=== PATIENT | female | born 1995 | race Caucasian/White ===

== ENCOUNTER 2018-01-31 06:45 | Observation (INO) ==
[2018-01-31 10:03] LABS: BILIRUBIN,URINE NEGATIVE (NEG); CLARITY,URINE CLEAR (CLEAR); COLOR,URINE YELLOW (Y); GLUCOSE, URINE (UA) 100 mg/dL (NEG); OCCULT BLOOD,URINE NEGATIVE (NEG); PROTEIN,URINE NEGATIVE (NEG); UROBILINOGEN,URINE 0.2 EU/dL (0.2)
[2018-01-31 10:08] LABS: RBC,URINE 0 /hpf; SQUAMOUS EPITHELIAL CELL,UR FEW; URINE SAMPLE TYPE CATH SPECIMEN
[2018-01-31] MEDS ORDERED: metroNIDAZOLE Tab 500 MG TAB PO ONE ×2 (10:55→23:50)
[2018-01-31] MEDS ORDERED: NIFEdipine 10 MG CAPSULE PO ONE (11:20)
[2018-01-31] MEDS ORDERED: Lactated Ringers-OB Dept 1,000 ML PRIMARY IV SCH (14:00)
[2018-01-31] MEDS ORDERED: Sodium Chloride 0.9% 1,000 ML PRIMARY IV ONE (14:18)
[2018-01-31] MEDS ORDERED: TERBUTALINE SULFATE 1 MG/1 ML SDV SUBCUT ONE (15:35)
[2018-01-31] MEDS ORDERED: Sodium Chloride 0.9% 1,000 ML PRIMARY IV SCH (17:30)
[2018-01-31] MEDS: NIFEdipine 10 MG CAPSULE PO SCH ×3 (17:56→22:36)
[2018-01-31] MEDS ORDERED: ACETAMINOPHEN 500 MG TABLET PO ONE (18:20)
[2018-01-31] MEDS ORDERED: CALCIUM CARBONATE 500 MG (TUMS) CHEWABLE TABLET PO PRN (18:59)
[2018-01-31] MEDS ORDERED: Ondansetron ODT Tab 4 MG TAB PO PRN (18:59)
[2018-01-31] MEDS ORDERED: LIDOCAINE W/ SODIUM BICARB 0.5 ML SYR SUBD PRN (18:59)
[2018-01-31] MEDS ORDERED: ONDANSETRON 4 MG/2 ML VIAL IVP PRN (18:59)
[2018-01-31 21:53] VITALS: BP 122/67; RESP 20; TEMP 98.1; O2SAT 100
[2018-02-01] MEDS ORDERED: ACETAMINOPHEN 325 MG TABLET PO PRN (00:30)
[2018-02-01] MEDS ORDERED: Prenatal Multivitamin Tab 1 TAB TAB PO SCH (09:00)
--- NOTE | 2018-02-02 13:15 | OB.PROGRES ---
Intake - - Reason for Visit/Chief Complaint: NST, Other Additional Reason(s) for Visit: type 1 diabetic Admitted From: Home - Estimated Due Date: 03/11/18 Gestational Age in Weeks and Days: 34 Weeks and 5 Days : 2 Para: 1 Births: 1 Living Children: 1 - Labs Blood Type and Rh: O+ Group B Strep: Unknown Hepatitis B Surface Antigen: Absent HIV: Negative Rubella Status: Immune VDRL/RPR: Absent Maternal - Vital Signs Last Taken Vital Signs: Vital Signs - Last Taken Temperature 98.1 F 01/31/18 21:47 Pulse Rate 76 01/31/18 21:47 Respiratory Rate 20 01/31/18 21:47 Blood Pressure 122/67 01/31/18 21:47 Pulse Ox 100 01/31/18 21:47 - Cervical Exam Cervical Dilation (cm): 0 Cervical Effacement Percentage: 0 Station: -4 Exam Performed By: Ricardo - Vaginal Discharge Vaginal Bleeding Amount: None Vaginal Discharge Amount: Moderate Vaginal Discharge Description: Watery Vaginal Discharge Color: White Vaginal Itching: No Monitoring - Uterine Activity Uterine Contraction Monitor Mode: External Contraction Frequency(minutes): 2-4 Contraction Duration (seconds): 30/60 Uterine Contraction Pattern: Irritability Uterine Tone Measurement Phase: Soft Uterine Contraction Intensity: Mild Serrato Score - Serrato Score Cervical Dilation: 0 cm Cervical Effacement: 0-30% Station: -3 Cervical Consistency: Firm Cervical Position: Posterior Serrato Score Total: 0 Results - Bedside Testing Bedside Urine Ketone: Negative Bedside Urine Leukocytes Esterase: Large Bedside Urine Nitrite: Negative Bedside Urine Occult Blood: Negative Bedside Urine Protein: Negative Bedside Specific [place]: 1.010 Assessment and Plan - Assessment / Plan Additional Assessment/Plan Details: Assessment: IUP 34+ weeks who presented for antepartum testing. The patient had large leukoesterase on a urine and therefore a catheter urinalysis was completed. Also a vaginosis panel was completed secondary to vaginal discharge. The patient was diagnosed with bacterial vaginosis and treated with metronidazole 500 mg twice a day for 7 days. Her UA with micro-on the catheter specimen was negative. Urine culture was negative. The patient continued to contract and Dr. Flores evaluated the patient. With hydration and decreased activity, the contractions decreased. The patient was sent home later in the day with strict precautions to return for increased contractions or kick count precautions. Patient expressed understanding. The patient is a type I diabetic and that is the indication for antepartum testing. Secondary to the type I diabetes, betamethasone for lung maturity was discussed with the patient but since the contractions decreased, betamethasone was not administered since the betamethasone would significantly alter the patient's glucoses for a couple days or most likely would alter the glucoses. The patient expressed understanding.
--- NOTE | 2018-02-06 22:35 | OB.PROGRES ---
Date and Time of Service: 01/31/18 Interval History: Per nurse, feeling better. Not feeling any contractions, very few on the monitor. Baby is moving around well. Denies vag bleeding or gushes of fluid. A mild MEJIA, but will take some tylenol. Requesting to go home. Objective - Cervical Exam [place]: irritability, no u/c noted. Heart Rate Interpretation Category: Category I - Vital Signs Last Taken Vital Signs: Vital Signs - Last Taken Temperature 98.1 F 01/31/18 21:47 Pulse Rate 76 01/31/18 21:47 Respiratory Rate 20 01/31/18 21:47 Blood Pressure 122/67 01/31/18 21:47 Pulse Ox 100 01/31/18 21:47 Assessment and Plan - Patient Problems (1) contractions Status: Acute Code(s): O47.9 - False labor, unspecified (2) Bacterial vaginosis Status: Acute Code(s): N76.0 - Acute vaginitis; B96.89 - Other specified bacterial agents as the cause of diseases classified elsewhere - Assessment / Plan Additional Assessment/Plan Details: -negative FFN -procardia is effectively decreasing her contractions down to almost nothing. -GBS was collected. -will take flagyl 500 mg po bid x 1 week for the BV -f/u in 1-[address] Greco.
== END 2018-01-31 23:20 | disposition home or self-care (01) ==
LOC: OBOP 06:45 → OBIP 06:45
PROVIDERS: ADMIT Family Medicine; ATTEND Family Medicine

== ENCOUNTER 2018-02-10 08:20 | Inpatient (IN) ==
--- NOTE | 2018-02-10 10:31 | OB.PROGRES ---
Intake - - Reason for Visit/Chief Complaint: NST Admitted From: Home - Estimated Due Date: 03/11/16 Gestational Age in Weeks and Days: 140 Weeks and 1 Days Para: 1 Births: 1 Living Children: 1 - Labs Blood Type and Rh: O+ Group B Strep: Negative Rubella Status: Immune Maternal - Vital Signs Last Taken Vital Signs: Vital Signs - Last Taken Temperature 97.8 F 02/10/18 08:34 Pulse Rate 85 02/10/18 08:34 Respiratory Rate 18 02/10/18 08:34 Blood Pressure 117/71 02/10/18 08:34 Pulse Ox 97 02/10/18 08:34 - Vaginal Discharge Vaginal Bleeding Amount: None Vaginal Discharge Amount: None Results - Bedside Testing Bedside Urine Ketone: Negative Bedside Urine Leukocytes Esterase: Moderate Bedside Urine Nitrite: Negative Bedside Urine Occult Blood: Trace Bedside Urine Protein: 3+ Bedside Specific [place]: 1.030 Assessment and Plan - Assessment / Plan Additional Assessment/Plan Details: The patient is a 22-year-old at 35-6/7 weeks with type I diabetes using an insulin pump, edema of , area of , and a history of a 36 week delivery after PPROM at 36 weeks and the delivery of a 9 lbs. 10 oz. child at 36 weeks gestation in [place], [place]. The patient presents today for antepartum testing secondary to the type I diabetes. Additionally, the patient was placed on nifedipine 10 mg every 4 hours 2 weeks ago secondary to contractions. The patient was not administered a to betamethasone secondary to the patient's type I diabetes and the patient vannesa but not changing her cervix and the fact that with her last the patient did receive betamethasone and her glucoses were not controlled well for several days and the patient did not want to experience this with this . The patient has done well over the last 2 weeks. The patient states that she has had back pain since last night and she can feel tightening in her abdomen both the right and the left side. No bleeding. No gush of fluid. No specific pain with contractions. The patient was found to be vannesa every 2-3 minutes on the monitor. heart tones in the 160s to 170s with good accelerations. No late decelerations. Please see the note below from my first meeting with the patient in November 2017 when the patient was 24-5/7 weeks. Patient transferred from [place], [place] in the mid to later second trimester. The patient is a 22-year-old at 24-5/7 weeks with an MELLISA of 03/11/2018 who presents today as a transfer OB from [place], [place]. Patient is a type I diabetic using an insulin pump. The patient does not have a continuous glucose monitor yet. The patient states her fasting glucoses are usually less than 95 and her postprandial glucoses are 120 to 130. She should is followed by an alteration workroom supervisor in [place], [place]. Patient had a level II ultrasound in October with maternal- medicine which was essentially normal. Otherwise, patient is doing well. Positive movement, no leak of fluid, no bleeding. Past medical history significant for type I diabetes since age 7. No hypertension. No asthma. Past surgical history x1 at 36 weeks for PPROM. [place] teeth extraction, shoulder surgery status post a course injury Allergies to Ceclor-rash, hydrocodone-rash No tobacco, no alcohol, no drugs. OB history with ??1 with a Pfannenstiel skin incision for PPROM at 36 weeks gestation. Baby was 9 lbs. 10 oz. Baby was in the nursery in [place] for some time secondary to respiratory issues and glucose issues. 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 No STI history, no abnormal Pap smear history. Family history of endocrine disorders. Patient's blood type is documented as O+ from [facility]. I will order a type and screen here for a blood type and antibody screen for documentation here at [facility]. Objective: Patient appears comfortable, blood pressure 117/71 Lungs clear to auscultation Heart regular rate and rhythm Abdomen is gravid, soft, nontender, no guarding or rebound Cervix is closed to fingertip and long and moderate in consistency Extremity with 2+ pitting edema bilaterally and 3/4 reflexes bilaterally. No clonus. FHT's 160-170 with accels and no lates. By Jose Roberto's, baby is in the cephalic presentation. Patient will have DELTA today. Assessment: IUP 35-6/7 weeks with type I diabetes with glucoses supposedly well controlled during this with fasting glucoses less than 95 and 2 are postprandials less than 07[birth year]25/1929 according to the patient who sees an alteration workroom supervisor in [facility] in [place], [place]. The patient's glucose today was 217. 2 other times that the patient has been in the hospital the patient's glucoses were above 200. The patient has not received betamethasone this secondary to the patient stating that she really did not want them if she did not need them since her glucoses when [id number] for several days when she received betamethasone in her first in the third trimester. The patient did not feel well at all. The patient has been on nifedipine 10 mg every 4 hours for the past 2 weeks. Today, the patient is vannesa regularly every 2-3 minutes. The cervix is still closed to a fingertip and thick. Therefore, the patient is not changing her cervix but is vannesa regularly. The patient's EFW has been the 98th percentile. 3343 grams on 02/03/2018 was last growth scan. The patient states that this baby is smaller than her last baby as far she can tell by how she is carrying the baby. The patient's GBS is negative The patient has had 2 different urine cultures are been negative this . Clean-catch urines with any leukocyte esterase. Catheterized urines have been negative for UA micro-and for urine culture. Plan: I had the patient take a dose of nifedipine 10 mg by mouth at around 1040 hrs. Her last dose prior to that was at 0730 hrs. It was due at 1130 hrs. I spoke with the patient about the possibility of betamethasone administration for lung maturity. The E is speaking with the patient now on how her glucoses could perhaps be better monitored and controlled secondary to the betamethasone. The patient just had labs done yesterday with a CBC and CMP. Patient's H&H was 11 and 34. Platelets were normal. White count was normal. Creatinine was 0.6 and AST and ALT were normal but the ALT was 51 with the upper limit of normal 52. Patient's blood pressure is normal. I will admit the patient. The patient and I have talked about keeping the patient here if the contractions do slow down and try to get a steroid window. We have also discussed transferring the patient to a higher level of care secondary to the possibility the patient may be going into labor and the nifedipine not quieting the patient's contractions anymore. There is a possibility that the baby may need to be in the NICU for some time secondary to pulmonary issues or glucose issues. Our small nursery here may not be able to care for the baby long-term and the patient and I discussed the possibility of transferring her if she were to need a versus the possibility of doing a here and then determining how the baby would do. The patient expressed understanding. The CDE did speak with the patient. The patient has had very poor success with a continuous glucose monitor that she got from her CDE and alteration workroom supervisor in [place], [place]. Currently, the patient declines to wear this. The patient does not want betamethasone but will defer to my decision. The CDE and myself discussed that we could give some extra small boluses instead of rearranging the patient's basal rate. The patient could also speak with her alteration workroom supervisor's office in [place] or I could try to contact them. The patient has fairly direct access with them. Again, I will determine if the early dose of nifedipine has helped the patient' s contractions. Since our nursery is currently busy with one baby already on CPAP, and if the patient continues to contract; I will offer the patient to be transferred to [place], [place] to a higher level care secondary to the gestational age the baby but also the fact that the patient is a type I diabetic and the may have a higher chance of requiring NICU pulmonary care and fairly constant glucose care.
[2018-02-10] MEDS ORDERED: LIDOCAINE W/ SODIUM BICARB 0.5 ML SYR SUBD PRN (10:59)
[2018-02-10] MEDS ORDERED: ONDANSETRON 4 MG/2 ML VIAL IVP PRN (10:59)
[2018-02-10 12:02] LABS: Hematocrit [HCT] 33.6 % (37.0-47.0); Hemoglobin [HGB] 11.5 g/dL (12.0-16.0); MEAN CORPUSCULAR HEMOGLOBIN 27.8 PG (27-31); MEAN CORPUSCULAR HGB CONC 34.2 g/dL (33-37); MEAN CORPUSCULAR VOLUME 81.2 FL (81-99); MEAN PLATELET VOLUME 12.4 FL (7.4-12.2); RED BLOOD COUNT 4.14 10^6/uL (4.20-5.40)
[2018-02-10 12:13] LABS: BLOOD UREA NITROGEN 11 mg/dL (7-22); BUN/CREATININE RATIO 18.33 (6-20); SERUM ALBUMIN 3.3 g/dL (3.5-4.8); Uric Acid 5.2 mg/dl (2.5-6.2)
[2018-02-10] MEDS: Lactated Ringers 1,000 ML PRIMARY IV SCH ×2 (12:30→20:10)
--- NOTE | 2018-02-10 12:58 | DI ---
LIMITED OBSTETRICAL ULTRASOUND FOR GROWTH AND DELTA, 02/10/2018 11:48 AM Clinical History: O24.013 Pre-existing type 1 diabetes mellitus, in , t... Previous Exam: 02/03/2018. EDC based on early OB US: 03/11/2018. There is a single live IUP currently in vertex presentation. Amnionic fluid content is normal. Amniot ic fluid index is 19.7 cm. activity is observed as follows: cardiac and extremity. The placenta is anterior corpus and Grade 1. The uterine wall and placenta appear normal. heart rate is 167 beats/minute and regular. Well formed distal femoral epiphyses are noted. BPD, HC, AC, and FL measur ements are 91 mm, 335 mm, 396 mm, and 73 mm, respectively. These measurements correspond to EGA value s of 37 weeks 0 days, 38 weeks 3 days, not available, and 37 weeks 3 days, respectively. Composite EG A is 37 weeks 5 days. The US EDC is 02/26/2018. EDC based on early OB US is 03/11/2018. LMP percentile i s 98%. Estimated weight is 4239 g, plus or minus 619 g. Readin. Single live fetus with vertex presentation and normal amniotic fluid content. Amniotic fluid inde x is 19.7 cm. Placenta is anterior corpus and grade 1. 2. The composite EGA is 37 weeks 5 days. The abdominal circumference measurement exceeds the standar d values for this biophysical parameter. The ultrasound EDC is 02/26/2018. EDC based on the early OB u ltrasound is 03/11/2018. 3. LMP percentile is 98%. Estimated weight is 4239 g, plus or minus 619 g.
--- NOTE | 2018-02-10 13:24 | OB.PROGRES ---
Interval History: The patient is a 22-year-old at 35-6/7 weeks with type I diabetes using an insulin pump, edema of , proteinuria of , and a history of a 36 week delivery - section-after PPROM at 36 weeks and the delivery of a 9 lbs. 10 oz. child at 36 weeks gestation in [place], [place]. The patient presents today for antepartum testing secondary to the type I diabetes. Additionally, the patient was placed on nifedipine 10 mg every 4 hours 2 weeks ago secondary to contractions. The patient was not administered a to betamethasone secondary to the patient's type I diabetes and the patient vannesa but not changing her cervix and the fact that with her last the patient did receive betamethasone and her glucoses were not controlled well for several days and the patient did not want to experience this with this . The patient has done well over the last 2 weeks. The patient states that she has had back pain since last night and she can feel tightening in her abdomen both the right and the left side. No bleeding. No gush of fluid. No specific pain with contractions. The patient was found to be vannesa every 2-3 minutes on the monitor. heart tones in the 160s to 170s with good accelerations. No late decelerations. Please see the note below from my first meeting with the patient in November 2017 when the patient was 24-5/7 weeks. Patient transferred from [place], [place] in the mid to later second trimester. The patient is a 22-year-old at 24-5/7 weeks with an MELLISA of 03/11/2018 who presents today as a transfer OB from [place], [place]. Patient is a type I diabetic using an insulin pump. The patient does not have a continuous glucose monitor yet. The patient states her fasting glucoses are usually less than 95 and her postprandial glucoses are 120 to 130. She should is followed by an brick carrier in [place], [place]. Patient had a level II ultrasound in October with maternal- medicine which was essentially normal. Otherwise, patient is doing well. Positive movement, no leak of fluid, no bleeding. Past medical history significant for type I diabetes since age 7. No hypertension. No asthma. Past surgical history x1 at 36 weeks for PPROM. [place] teeth extraction, shoulder surgery status post a course injury Allergies to Ceclor-rash, hydrocodone-rash No tobacco, no alcohol, no drugs. OB history with x1 with a Pfannenstiel skin incision for PPROM at 36 weeks gestation. Baby was 9 lbs. 10 oz. Baby was in the nursery in [place] for some time secondary to respiratory issues and glucose issues. 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 No STI history, no abnormal Pap smear history. Family history of endocrine disorders. Patient's blood type is documented as O+ from [facility]. I will order a type and screen here for a blood type and antibody screen for documentation here at [facility]. Objective: Patient appears comfortable, blood pressure 117/71 Lungs clear to auscultation Heart regular rate and rhythm Abdomen is gravid, soft, nontender, no guarding or rebound Cervix is closed to fingertip and long and moderate in consistency Extremity with 2+ pitting edema bilaterally and 3/4 reflexes bilaterally. No clonus. FHT's 160-170 with accels and no lates. By Jose Roberto's, baby is in the cephalic presentation. Patient will have DELTA today. Assessment: IUP 35-6/7 weeks with type I diabetes with glucoses supposedly well controlled during this with fasting glucoses less than 95 and 2 are postprandials less than 07/[birth year]29 according to the patient who sees an brick carrier in [facility] in [place], [place]. The patient's glucose today was 217. 2 other times that the patient has been in the hospital the patient's glucoses were above 200. The patient has not received betamethasone this secondary to the patient stating that she really did not want them if she did not need them since her glucoses when [id number] for several days when she received betamethasone in her first in the third trimester. The patient did not feel well at all. The patient has been on nifedipine 10 mg every 4 hours for the past 2 weeks. Today, the patient is vannesa regularly every 2-3 minutes. The cervix is still closed to a fingertip and thick. Therefore, the patient is not changing her cervix but is vannesa regularly. The patient's EFW has been the 98th percentile. 3343 grams on 02/03/2018 was last growth scan. The patient states that this baby is smaller than her last baby as far she can tell by how she is carrying the baby. History of section The patient's GBS is negative The patient has had 2 different urine cultures are been negative this . Clean-catch urines with any leukocyte esterase. Catheterized urines have been negative for UA micro-and for urine culture. Plan: I had the patient take a dose of nifedipine 10 mg by mouth at around 1040 hrs. Her last dose prior to that was at 0730 hrs. It was due at 1130 hrs. I spoke with the patient about the possibility of betamethasone administration for lung maturity. The CDE is speaking with the patient now on how her glucoses could perhaps be better monitored and controlled secondary to the betamethasone. The patient just had labs done yesterday with a CBC and CMP. Patient's H&H was 11 and 34. Platelets were normal. White count was normal. Creatinine was 0.6 and AST and ALT were normal but the ALT was 51 with the upper limit of normal 52. Patient's blood pressure is normal. I will admit the patient. The patient and I have talked about keeping the patient here if the contractions do slow down and try to get a steroid window. We have also discussed transferring the patient to a higher level of care secondary to the possibility the patient may be going into labor and the nifedipine not quieting the patient's contractions anymore. There is a possibility that the baby may need to be in the NICU for some time secondary to pulmonary issues or glucose issues. Our small nursery here may not be able to care for the baby long-term and the patient and I discussed the possibility of transferring her if she were to need a versus the possibility of doing a here and then determining how the baby would do. The patient expressed understanding. The CDE did speak with the patient. The patient has had very poor success with a continuous glucose monitor that she got from her CDE and brick carrier in [place], [place]. Currently, the patient declines to wear this. The patient does not want betamethasone but will defer to my decision. The CDE and myself discussed that we could give some extra small boluses instead of rearranging the patient's basal rate. The patient could also speak with her brick carrier's office in [place] or I could try to contact them. The patient has fairly direct access with them. Again, I will determine if the early dose of nifedipine has helped the patient' s contractions. Since our nursery is currently busy with one baby already on CPAP, and if the patient continues to contract; I will offer the patient to be transferred to [place], [place] to a higher level care secondary to the gestational age the baby but also the fact that the patient is a type I diabetic and the may have a higher chance of requiring NICU pulmonary care and fairly constant glucose care. The above note was copied and pasted because the first line did not say proteinuria and the patient has had 1 . Sometimes Medical Dragon does not transcribe correctly. Currently, the patient can feel contractions but no pain. Some tightening. The patient's glucose was 86 and the patient would like to have something to take in. Objective - Cervical Exam Cervical Exam: Deferred currently [place]: Contractions every 2-3 minutes Heart Rate Interpretation Category: Category I - Labs CBC and BMP: 02/10/18 11:03 02/10/18 11:03 - Vital Signs Last Taken Vital Signs: Vital Signs - Last Taken Temperature 97.8 F 02/10/18 08:34 Pulse Rate 78 02/10/18 10:59 Respiratory Rate 18 02/10/18 10:59 Blood Pressure 130/81 02/10/18 10:59 Pulse Ox 99 02/10/18 10:59 - Additional Details Additional Details: DELTA was 19 and baby in cephalic presentation Assessment and Plan - Assessment / Plan Additional Assessment/Plan Details: Assessment: IUP 35-6/7 weeks with type I diabetes with contractions. Earlier, cervix was not dilated. The patient has been receiving nifedipine 10 mg every 4 hours. I gave the patient a dose about 1 hour early. This did not decrease her contraction frequency. However, the patient could not feel the contractions-pain. She can feel some tightening and pressure. History of section GBS negative I spoke with maternal- medicine in [place], [place]. They suggested that since the patient was not changing her cervix, to continue to observe the patient. With respect to the steroid betamethasone administration, the maternal medicine doctor suggested not administering it secondary to the patient's history of not feeling well for several days after the steroid was administered. If the patient's cervix does not change, they suggested sending the patient home with strict precautions. Plan: I spoke with the patient. The patient will continue to be observed at least until tomorrow because of the frequency of contractions. The patient's cervix will be checked later and if she continues to contract, the patient's cervix will be checked again intermittently. Clear liquid diet currently but will change to a ADA regular diet if the patient is not change in her cervix. I spoke with the patient about not administering the steroids and the patient has not wanted the steroids historically and was pleased that the maternal medicine doctor suggested not to give them secondary to her history. The patient will continue to be observed closely.
[2018-02-10] MEDS ORDERED: NIFEdipine 10 MG CAPSULE PO SCH (14:30)
[2018-02-10] MEDS: NIFEDIPINE 10 MG PO SCH ×2 (18:22→22:49)
--- NOTE | 2018-02-10 18:24 | OB.PROGRES ---
Interval History: Patient states that she is been doing fairly well this afternoon. She currently had a glucose of 56 which she treated with some juice. The patient would like to eat. She can feel slight pressure and slight tightening but no pain with contractions. No leak of fluid. No bleeding. Objective - Cervical Exam Cervical Exam: Cervix is fingertip to closed. Soft cervix. Baby is in cephalic presentation. [place]: Contractions every 2-3 and sometimes every 2-4 minutes. Heart Rate Interpretation Category: Category I - Labs CBC and BMP: 02/10/18 11:03 02/10/18 11:03 - Vital Signs Last Taken Vital Signs: Vital Signs - Last Taken Temperature 97.8 F 02/10/18 08:34 Pulse Rate 78 02/10/18 10:59 Respiratory Rate 18 02/10/18 10:59 Blood Pressure 130/81 02/10/18 10:59 Pulse Ox 99 02/10/18 10:59 Assessment and Plan - Assessment / Plan Additional Assessment/Plan Details: Assessment: IUP 35-6/7 weeks with type I diabetes and history of a section for a large for gestational age baby at 36 weeks-9 lbs. 10 oz.-after P problem. The patient presented for antepartum testing this morning but was found to be vannesa regularly even though the patient had been taking nifedipine 10 mg every 4 hours. The patient continues to not change her cervix. GBS negative Proteinuria -normal blood pressures Edema of Plan: Continue insulin pump for glucoses and continue nifedipine 10 mg every 4 hours. The patient may eat a regular diet for her diabetes. 30 g for breakfast and lunch and 45-60 g for dinner. This is what her CDE and sprue knocker in [place], [place] have set up for her. The patient should continue to check her glucoses regularly. Continue monitoring overnight. For painful contractions, the patient's cervix will be evaluated. For continued nonpainful contractions, the patient's cervix will be checked tomorrow. Continue to evaluate the patient.
[2018-02-10] MEDS ORDERED: ACETAMINOPHEN 500 MG TABLET PO PRN (21:22)
[2018-02-11] MEDS: NIFEDIPINE 10 MG PO SCH ×2 (02:32→06:44)
[2018-02-11] MEDS: Lactated Ringers 1,000 ML PRIMARY IV SCH (04:23)
[2018-02-11 07:22] VITALS: BP 121/77; RESP 17; TEMP 97.6; O2SAT 99
[2018-02-11] MEDS ORDERED: Prenatal Multivitamin Tab 1 TAB TAB PO SCH (09:00)
--- NOTE | 2018-02-11 09:36 | OB.PROGRES ---
Interval History: The patient states that she has been comfortable overnight. No painful contractions or no regular painful contractions. Some cramping and occasional pressure on the right and left hip area. Baby is moving well. No bleeding. No gush of fluid. The patient is tolerating her diet well. The patient is comfortable going home and monitoring contractions there if her cervix is not changed. Objective - Cervical Exam Cervical Exam: FT/thick. Soft cervix [place]: Contractions sometimes every 2-3 minutes and sometimes the contractions to space out to every 2-5 minutes. Heart Rate: 160s Heart Rate Interpretation Category: Category I - Labs CBC and BMP: 02/10/18 11:03 02/10/18 11:03 - Vital Signs Last Taken Vital Signs: Vital Signs - Last Taken Temperature 97.6 F 02/11/18 07:00 Pulse Rate 69 02/11/18 07:00 Respiratory Rate 17 02/11/18 07:00 Blood Pressure 121/77 02/11/18 07:00 Pulse Ox 99 02/11/18 07:00 - Additional Details Additional Details: Lungs clear to auscultation Heart regular rate and rhythm Abdomen soft and nontender and gravid Extremity with 2+ pitting edema bilaterally with negative [place]. Assessment and Plan - Assessment / Plan Additional Assessment/Plan Details: Assessment: IUP 36 weeks with type I diabetes with history of a section for LGA baby with PPROM at 36 weeks gestation or years ago. Proteinuria with normal blood pressures Edema of Patient's glucoses have been in the 120s this morning including fasting. Patient has not been as active. Overall, the patient's glucoses have been much better this most likely since the baby is not as large by the patient's determination but also the EFW by ultrasound on to February 2018 was about 3400 g. The contractions have not cause cervical change yet. Likelihood of uterine rupture is low with no pain and abdominal exam nontender Plan: The patient will be discharged home today. The patient was initially admitted with regular contractions and I was going to administer betamethasone IM and then repeated in 24 hours and the patient was admitted so that we could control the patient's glucoses secondary to the betamethasone administration. The patient initially declined the betamethasone after we discussed that and the patient was admitted but that I spoke with maternal- medicine and the maternal- medicine physician suggested not to administer the betamethasone since the patient felt so poorly 4 years ago when betamethasone was administered secondary to her glucose increases. The patient will continue taking nifedipine 10 mg every 4 hours until 37 weeks gestation The patient will follow-up with me on 02/14/2018 at 10:30 in the morning Antepartum testing prior to seeing me on Wednesday. labor precautions, kick count precautions and preeclampsia precautions have been discussed with the patient.
--- NOTE | 2018-02-11 09:38 | DCSUMMARY ---
Hospitalization Summary Admit Date: 02/10/18 Discharge Date: 02/11/18 Primary Diagnosis:: IUP 35-6/7 weeks with contractions Secondary Diagnosis:: Type I diabetes Proteinuria Edema of Prior section Primary Surgery and Date: No surgery was completed Hospital Course: Assessment: IUP 36 weeks with type I diabetes with history of a section for LGA baby with PPROM at 36 weeks gestation or years ago. Proteinuria with normal blood pressures Edema of Patient's glucoses have been in the 120s this morning including fasting. Patient has not been as active. Overall, the patient's glucoses have been much better this most likely since the baby is not as large by the patient's determination but also the EFW by ultrasound on to February 2018 was about 3400 g. The contractions have not cause cervical change yet. Likelihood of uterine rupture is low with no pain and abdominal exam nontender Plan: The patient will be discharged home today. The patient was initially admitted with regular contractions and I was going to administer betamethasone IM and then repeated in 24 hours and the patient was admitted so that we could control the patient's glucoses secondary to the betamethasone administration. The patient initially declined the betamethasone after we discussed that and the patient was admitted but that I spoke with maternal- medicine and the maternal- medicine physician suggested not to administer the betamethasone since the patient felt so poorly 4 years ago when betamethasone was administered secondary to her glucose increases. The patient will continue taking nifedipine 10 mg every 4 hours until 37 weeks gestation The patient will follow-up with me on 02/14/2018 at 10:30 in the morning Antepartum testing prior to seeing me on Wednesday. labor precautions, kick count precautions and preeclampsia precautions have been discussed with the patient. Exam - Vitals Vital Signs: Vital Signs Temperature 97.6 F Temperature Source Oral Pulse Rate [Pulse Oximeter] 69 Respiratory Rate 17 Blood Pressure [Right Arm] 121/77 Pulse Ox 99 Oxygen Delivery Method Room Air Height 5 ft 3 in Weight 218 lb 6.4 oz
== END 2018-02-11 10:06 | disposition home or self-care (01) | DRG 778 ==
LOC: OBOP 08:20 → OBIP 11:00
PROVIDERS: ADMIT Obstetrics & Gynecology; ATTEND Obstetrics & Gynecology

== ENCOUNTER 2018-02-21 14:07 | Inpatient (IN) ==
[2018-02-21 15:01] LABS: Hematocrit [HCT] 33.8 % (37.0-47.0); Hemoglobin [HGB] 11.4 g/dL (12.0-16.0); MEAN CORPUSCULAR HEMOGLOBIN 27.2 PG (27-31); MEAN CORPUSCULAR HGB CONC 33.7 g/dL (33-37); MEAN CORPUSCULAR VOLUME 80.7 FL (81-99); MEAN PLATELET VOLUME 12.9 FL (7.4-12.2); RED BLOOD COUNT 4.19 10^6/uL (4.20-5.40)
[2018-02-21 15:33] LABS: BLOOD UREA NITROGEN 11 mg/dL (7-22); BUN/CREATININE RATIO 18.33 (6-20); Uric Acid 4.8 mg/dl (2.5-6.2)
[2018-02-21] MEDS ORDERED: Lactated Ringers 500 ML PRIMARY IV ONE (15:35)
[2018-02-21] MEDS: Lactated Ringers 1,000 ML PRIMARY IV SCH ×2 (16:02→20:14)
[2018-02-21 16:59] LABS: HEMOGLOBIN A1C 6.92 % (4.2-6.0)
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
[2018-02-21] MEDS ORDERED: LIDOCAINE W/ SODIUM BICARB 0.5 ML SYR SUBD PRN (17:19)
[2018-02-21] MEDS ORDERED: Lactated Ringers 1,000 ML PRIMARY IV ONE (17:19)
[2018-02-21] MEDS ORDERED: LIDOCAINE HCL 2 % 10 ML JELLY URO-JECT TOPICAL PRN (17:19)
[2018-02-21] MEDS ORDERED: CITRIC ACID/SODIUM CITRATE 30 ML CUP PO ONE (17:19)
[2018-02-21] MEDS ORDERED: Clindamycin 900mg (Premix) 900 MG/50 ML BAG IV ONE (17:19)
[2018-02-21] MEDS ORDERED: Metoclopramide Inj 10 MG/2 ML VIAL IV ONE (17:19)
[2018-02-21] MEDS ORDERED: FAMOTIDINE 20 MG/2 ML VIAL IVP ONE (17:19)
[2018-02-21] MEDS ORDERED: Oxytocin 20 Units + LR 20 UNIT/1,000 ML BAG IV SCH (17:30)
--- NOTE | 2018-02-21 19:41 | CONSULT ---
Consult Note - Consult Consult Date: 02/21/18 Reason for Consult: Other Requesting Physician: Dr. Greco Primary Care Provider: Jhonathan Greco MD - History of Present Illness History of Present Illness: This is a 22 years old female with medical history significant for history of diabetes type I since childhood on insulin pump for more than 10 years who is 2 para 1, she was admitted to the hospital by Dr. Greco as the plan is for her to have tomorrow. The hospitalist service were consulted for management of medical issues. Currently the patient is denying symptoms. She said that she did have low blood sugar earlier and blood was 49 she was given some juice. She feels better now. She said she been having low blood sugar maybe twice a week. She had a lower carbohydrate meal today compared to before. After her low blood sugar in addition to taking the juice she cut back on her basal level to half what she is on. She said she usually able to tell when she has low blood sugar she will have sweating and shakes. Her current basal level is the 47 units for 24 hours. She checks her blood sugar 6 times a day and give herself boluses according to her but sugar and intake. Past Medical History Medical History: 1. Diabetes type I on insulin pump. Her A1c she said before was around 5.6 Surgical History: History of Family History: Reviewed an Not Pertinent Tobacco Use: Never Smoker In the Past 12 Months, Have Used or Abuse Any of the Following Substance: None Alcohol Use: None Review of Systems - Review of Systems All Systems: Reviewed & No Additional Complaints Except as Stated Medication / Allergies Home Medications: Home Medications 3 Medication Instructions Recorded Confirmed Type Claudiaalog See Protocol SUBCUT DAILY 02/07/15 02/09/18 History vitamins no.42-folate 1 mg PO QDAY 11/24/17 02/21/18 History comb.no.6 1 mg chewable tablet ferrous gluconate 324 mg (38 mg 324 mg PO QDAY #30 tab 11/25/17 02/21/18 Rx iron) tablet ranitidine 150 mg tablet 150 mg PO BID PRN #60 tab 02/02/18 02/21/18 Rx clotrimazole 1 % topical cream 1 applic TOPICAL BID #45 g 02/09/18 02/21/18 Rx nifedipine 10 mg capsule 10 mg PO Q4H #10 cap 02/16/18 02/21/18 Rx Allergies/Adverse Reactions: Allergies 3 Allergy/AdvReac Type Severity Reaction Status Date / Time cefaclor [From Ceclor] Allergy Intermediate RASH Verified 02/21/18 14:28 hydrocodone bitartrate Allergy Intermediate RASH Verified 02/21/18 14:28 [From Vicodin] [place] And Derivatives AdvReac RASH Verified 02/21/18 14:28 Exam - Vitals Vital Signs: Vital Signs Temperature 98.1 F Temperature Source Oral Pulse Rate [Pulse Oximeter] 65 Respiratory Rate 18 Blood Pressure [Right Arm] 141/80 Pulse Ox 100 Oxygen Delivery Method Room Air Height 5 ft 3 in Weight 224 lb 3.2 oz - General General Appearance: No Acute Distress, Cooperative - Head Head Exam: Normal Inspection - Eye Eye Exam: POSITIVE: Normal Appearance - ENT ENT Exam: POSITIVE: Normal Exam - Neck Neck Exam: Normal Inspection - Respiratory Respiratory Exam: POSITIVE: Clear to Auscultation - Bilaterally - Cardiovascular Cardiovascular Exam: POSITIVE: RRR - GI/Abdominal Additional GI/Abdominal Exam Details: She is , heart monitor attached. - Rectal Rectal Exam: POSITIVE: Deferred - External Exam: POSITIVE: Deferred - Back Back Exam: POSITIVE: Normal Inspection - Neurological Neurological Exam: POSITIVE: Alert, Oriented x 3, CN II-XII Intact, No Facial Droop, Speech Intact / Clear, Moves All Extremities Equally - Psychiatric Psychiatric Exam: POSITIVE: Normal Affect Results - Labs CBC and BMP: 02/21/18 14:58 02/21/18 14:58 Assessment and Plan - Patient Problems (1) Type I diabetes mellitus Current Visit: Yes Status: Acute Comment: She had low blood sugar initially she did cut back on her pump to half what she takes. We'll check her blood sugar every 2 hours. We'll see what her numbers and then will decide if we need to switch her fluid. Currently Dr. Greco put her on Ringer lactate continue with it. if blood sugar is higher and we may increase the basal infusion. Code(s): E10.9 - Type 1 diabetes mellitus without complications
[2018-02-22] MEDS: Lactated Ringers 1,000 ML PRIMARY IV SCH ×3 (00:36→10:56)
[2018-02-22] MEDS ORDERED: D5-1/2NS 1,000 ML PRIMARY IV SCH (01:30)
--- NOTE | 2018-02-22 06:19 | OB.PROGRES ---
Interval History: The patient states that she is feeling well. No headache. No right upper quadrant pain. The patient slept intermittently. Objective - Cervical Exam Cervical Exam: Deferred Heart Rate Interpretation Category: Category I - Labs CBC and BMP: 02/21/18 14:58 02/21/18 14:58 - Vital Signs Last Taken Vital Signs: Vital Signs - Last Taken Temperature 98.4 F 02/22/18 05:00 Pulse Rate 58 L 02/22/18 05:00 Respiratory Rate 14 02/22/18 05:00 Blood Pressure 138/89 02/22/18 05:00 Pulse Ox 100 02/21/18 14:30 Assessment and Plan - Assessment / Plan Additional Assessment/Plan Details: Assessment: IUP 37-4/7 weeks with type I diabetes with preeclampsia without symptoms or signs of severe preeclampsia. Blood pressures overnight have been in the 140s over 90s and lower. If the patient is on her right side because of the blood pressure cuff position, the patient's blood pressures are lower. The patient does not have a headache or right upper quadrant pain. Contractions have spaced out although the patient really cannot feel the contractions well. They have spaced out on the monitor. Glucoses did drop some with the patient's insulin pump on board and the patient was started on D5 LR when the patient was nothing by mouth. Last glucose was 144 fingerstick. Plan: Repeat section this morning for preeclampsia without symptoms or signs of preeclampsia now that the patient is 37-4/7 weeks and the patient has had nothing by mouth over midnight. Pediatrics is aware of the patient. The hospitalist this following the patient's type I diabetes and will do so postoperatively. Magnesium sulfate not started secondary to the patient's blood pressures thus far. If the patient has blood pressures in the severe range or the labs this morning show abnormalities, magnesium sulfate would be started. CBC and CMP this morning now.
--- NOTE | 2018-02-22 06:30 | OB.OP.NOTE ---
Operative Report Surgeon: Angus Sales Route Driver Helper: Satish Trinidad MD Anesthesia Type: Regional Anesthesia Provider: Kim Lieberman CRNA Surgery Date: 02/22/18 Preoperative Diagnosis: IUP 37-4/7 weeks. Type I diabetes with estimated weight 98 percentile. Previous section. Patient desires repeat section. Preeclampsia without signs or symptoms of severe preeclampsia. contractions. Hydramnios-mild. Group B strep negative. The patient was satisfied parity. Patient desires bilateral tubal ligation. Postoperative Diagnosis: Same Procedure: Repeat low transverse section. Bilateral tubal ligation using Falope-Rings Estimated Blood Loss (mL): 800 Fluids: 1500 mL of LR. Clindamycin 900 mg IV preoperatively. Azithromycin 500 mg IV at cord clamp Complications: None apparent Findings at Surgery: Female infant with weight 10 lbs. 4 oz. Apgars were 8 and 9 ABG showed a pH of 7.267, PCO2 of 47.6, CO2 3 of 21.7, base excess -5 Normal ovaries Normal fallopian tubes Torsion of epiploica excised and sent to pathology found incidentally by general surgeon-Dr. Trinidad Indications for the Procedure: The patient is a 22-year-old at 37-4/7 weeks with type I diabetes using an insulin pump who has a history of a primary section at 36 weeks after PPROM and delivering a 9 lbs. 10 oz. boy. This was in 2013. The patient' s glucoses have been better controlled this with the highest hemoglobin A1c of 7.2 around 6-8 weeks ago. Hemoglobin A1c yesterday was 6.92. The patient has developed preeclampsia without signs or symptoms of severe preeclampsia and has a history of contractions and was prescribed nifedipine 10 mg every 4 hours for the past several weeks. The patient also has mild hydramnios with her last DELTA of 24. With the patient now nothing by mouth after midnight, the patient will have a repeat section and also a tubal ligation secondary to satisfied parity. Description of Procedure: The patient was taken to the operating room after the risks, benefits, alternatives and indications of a repeat section were discussed with the patient in detail. The patient also had satisfied parity and the risk of a tubal ligation were discussed with the patient. Consent forms have been signed previously. The risk, but not limited to, of infection, bleeding, pain postoperatively or intraoperatively, bleeding, hemorrhage requiring blood transfusion with associated risks, hysterectomy secondary to hemorrhage or infection postoperatively, damage to bowel, bladder, nerve, vessel, ureter, nicking the baby, serious infection requiring antibiotics postoperatively and possible transfer to a tertiary care hospital, the need to transfer the baby to a tertiary care hospital for intensive care unit care secondary to lung immaturity or extremely labile glucoses or temperature instability were discussed with the patient. This would also means separation of the patient from her since the patient would be here at [facility] post a and the baby would be in [place], [place] for NICU care. Additionally, blood clots to the legs or lungs and the low risk of was discussed with the patient. The patient expressed understanding with the above. Failure rate of tubal ligation up to 1- 2% over 10 years. Consent forms have been signed previously. The patient underwent spinal anesthesia with low-dose Duramorph in the usual fashion. heart tones were checked and they were normal. The patient was prepped. Santamaria catheter was placed. The patient was then draped sterilely. The patient was tested and anesthesia was found to be adequate. A Pfannenstiel skin incision over the old scar site was made. The subcutaneous tissue was bovied to the fascia. The fascia was nicked in the midline and extended laterally bilaterally using the Yankauer retractor to elevate the fascia off of the rectus muscles. A few vessels were bovied in the subcutaneous tissue. [place] clamps were then placed on either side of the midline on the fascia superiorly and the rectus muscles were dissected off of the fascia using the Bovie and bluntly. The same was done for the fascia inferiorly. The rectus muscles were gently using a Raven clamp. The peritoneum was then entered. The peritoneum was then stretched. I then placed my hand intra-abdominally to check for adhesions between the uterus and the anterior abdominal wall. The Oliver retractor was then placed. The lower uterine segment of the uterus was then evaluated. A low transverse uterine incision was then made. Amniotomy was performed and there was copious amounts of clear amniotic fluid. The lower uterine segment was then stretched. I then placed my hand intrauterine along the baby's head and then deliver the head atraumatically. Baby was in the OP presentation. The mouth and nose were bulb suctioned. The 's posterior shoulder was then delivered slowly and then the anterior shoulder and then the infant. Delayed cord clamping was allowed for for greater than 30 seconds. The baby had a lusty cry The cord was then clamped and cut and the baby was handed off to the waiting nurses and bacteriologist food. A section of cord was then clamped and cut for cord gases and then cord blood was obtained. The placenta was then delivered with manual retraction. Membranes were teased and removed. The uterus was then exteriorized. The uterine incision was then examined. The uterus incision was then closed with 0 Vicryl in a running locking fashion. A [id number] suture 2 was used just to the left of the midline secondary to some bleeding. Then there was good hemostasis. There appeared to be good hemostasis of the uterine incision. The fallopian tubes and ovaries were then examined. The patient desired permanent sterilization secondary to satisfied parity. Falope-Rings were placed on the patient's fallopian tubes about 3 cm from the cornua in an avascular space bilaterally. Good hemostasis. Attention was then turned to the patient's uterine incision again and there was good hemostasis. Irrigation posterior to the uterus and then was suctioned. The uterus was then placed back into the abdomen. The patient's right paracolic gutter was then irrigated and suctioned. Good hemostasis noted. The patient's left paracolic gutter was then irrigated and suctioned. Good hemostasis. The uterine incision was then examined again and irrigated. There appeared to be good hemostasis. The peritoneum was then identified and closed from cephalad to caudal with 3-0 Vicryl suture in a running fashion. There was some fluid that was visualized just before closing the peritoneum. The bladder was backfilled with methylene blue and saline. There did not appear to be any spill from the bladder. The bladder appeared intact. The peritoneum was then closed. The patient's fascia was then examined. Subfascially there was good hemostasis. The fascia was then closed with looped 0 PDS suture starting on the patient's left side and going towards the right side. The looped 0 PDS suture was then tied on the patient's right side at the fascial angle on the patient's right side. The fascia appeared to be intact. The subcutaneous tissue was then examined and there were a few bleeders that were bovied. The subcutaneous tissue was then irrigated and then suctioned. The subcutaneous tissue was then closed with 3-0 Vicryl suture in a running fashion. The skin was then examined and a few areas were bovied. The incision was cleaned with a moist lap sponge. The skin was then closed with 3-0 Stratafix suture in a subcuticular fashion starting in the midline and working towards the left side and right side. The incision appeared to be well approximated. Skin prep and then half-inch Steri-Strips were placed over the incision. Sponge, instrument, and needle counts were correct 2 The radiofrequency wand was also used to ensure that the count was correct. Silverlon dressing was placed over the Steri-Stripped incision site and then an ABD pad and then paper tape. A vaginal exam was then completed and the uterus was expressed of any clot or debris. There was some dark blood. Minimal clot. The agents perineum was cleared of all blood. Santamaria catheter was secured. The patient was then brought to the PACU in stable condition. Plan: The patient would recover in the PACU. The patient would then be transferred to a room. The is currently in the nursery with an IV of D10 secondary to glucose stabilization. Also on CPAP.
[2018-02-22] MEDS ORDERED: Sodium Chloride 0.9% vial 10 ML ONE (06:56)
[2018-02-22] MEDS ORDERED: OXYTOCIN 10 UNIT/1 ML ONE (06:56)
[2018-02-22] MEDS ORDERED: MORPHINE SULFATE/PF 10 MG/10 ML AMPULE ONE (06:56)
[2018-02-22] MEDS ORDERED: ePHEDrine Inj 50 MG/ML AMP ONE (06:56)
[2018-02-22] MEDS ORDERED: LIDOCAINE W/ SODIUM BICARB 0.5 ML SYR ONE (06:56)
[2018-02-22] MEDS ORDERED: CITRIC ACID/SODIUM CITRATE 30 ML CUP PO ONE (07:02)
[2018-02-22 07:33] LABS: BASOPHILS # (AUTO) 0.04 10*3/UL; BASOPHILS % (AUTO) 0.5 % (0-1); EOSINOPHILS % (AUTO) 1.3 % (0-8); Hematocrit [HCT] 32.1 % (37.0-47.0); Hemoglobin [HGB] 10.8 g/dL (12.0-16.0); LYMPHOCYTES # (AUTO) 2.53 10*3/uL; MEAN CORPUSCULAR HEMOGLOBIN 27.1 PG (27-31); MEAN CORPUSCULAR HGB CONC 33.6 g/dL (33-37); MEAN CORPUSCULAR VOLUME 80.7 FL (81-99); MEAN PLATELET VOLUME 12.3 FL (7.4-12.2); MONOCYTES # (AUTO) 0.53 10*3/UL (0.3-0.8); MONOCYTES % (AUTO) 6.8 % (5-15); NEUTROPHILS % (AUTO) 57.9 % (50-80); RED BLOOD COUNT 3.98 10^6/uL (4.20-5.40)
[2018-02-22] MEDS ORDERED: FAMOTIDINE 20 MG/2 ML VIAL IVP ONE (07:38)
[2018-02-22] MEDS ORDERED: Clindamycin 900mg (Premix) 900 MG/50 ML BAG IV ONE (07:38)
[2018-02-22] MEDS ORDERED: Metoclopramide Inj 10 MG/2 ML VIAL ONE (07:38)
[2018-02-22 07:41] LABS: PLATELET MORPHOLOGY COMMENT NORMAL MORPHOLOGY (NORM); RBC MORPHOLOGY COMMENT NORMAL MORPHOLOGY (NORM); WBC MORPHOLOGY COMMENT NORMAL MORPHOLOGY (NORM)
[2018-02-22 07:57] LABS: BLOOD UREA NITROGEN 8 mg/dL (7-22); BUN/CREATININE RATIO 13.33 (6-20); SERUM ALBUMIN 2.7 g/dL (3.5-4.8)
[2018-02-22] MEDS ORDERED: AZITHROMYCIN 500 MG VIAL IV ONE (07:58)
[2018-02-22] MEDS ORDERED: Sodium Chloride 0.9% 50 ML ONE (08:00)
[2018-02-22] MEDS ORDERED: ONDANSETRON 4 MG/2 ML VIAL ONE (08:42)
[2018-02-22] MEDS ORDERED: MISOPROSTOL 200 MCG TABLET ONE (08:49)
[2018-02-22] MEDS ORDERED: METHYLENE BLUE 10 MG/1 ML - 10 ML ONE (09:00)
[2018-02-22] MEDS ORDERED: MISOPROSTOL 200 MCG TABLET RECTAL ONE ×2 (09:19→11:00)
[2018-02-22] MEDS ORDERED: BUTORPHANOL TARTRATE 2 MG/1 ML VIAL IVP PRN (10:33)
[2018-02-22] MEDS ORDERED: diphenhydrAMINE 50 MG/1 ML VIAL IV PRN (10:33)
[2018-02-22] MEDS ORDERED: Nalbuphine Inj 20 MG/ML Ampule IVP PRN (10:33)
[2018-02-22] MEDS ORDERED: diphenhydrAMINE 25 MG CAPSULE PO PRN (10:33)
[2018-02-22] MEDS ORDERED: ONDANSETRON 4 MG/2 ML VIAL IVP PRN (10:33)
[2018-02-22] MEDS ORDERED: CALCIUM CARBONATE 500 MG (TUMS) CHEWABLE TABLET PO PRN (10:33)
[2018-02-22] MEDS ORDERED: DIPH,PERTUSS,TET(ADACEL) VAC/PF 0.5 ML (Tdap) IM ONE (10:33)
[2018-02-22] MEDS ORDERED: D5-LR 1,000 ML PRIMARY IV SCH (10:33)
[2018-02-22] MEDS ORDERED: FAMOTIDINE 20 MG/2 ML VIAL IVP PRN (10:33)
[2018-02-22] MEDS ORDERED: Naloxone Inj 0.01 MG, Sodium Chloride 0.9% vial 1 ML IVP PRN ×2 (10:33)
[2018-02-22] MEDS ORDERED: LANOLIN HPA 40 GM TUBE TOPICAL PRN (10:33)
[2018-02-22] MEDS ORDERED: Oxytocin 20 Units + LR 20 UNIT/1,000 ML BAG IV SCH (10:33)
[2018-02-22] MEDS: KETOROLAC 15 MG/1 ML VIAL IVP SCH ×3 (11:23→23:48)
--- NOTE | 2018-02-22 14:20 | CRNA.PROGR ---
Anesthesia Time - - Start date: 02/22/18 - Procedure/Recovery Time Anesthesia : Time In: 08:06 Anesthesia : Time Out: 10:11 - Other Weight: 101.695 kg Height: 5 ft 3 in Body Mass Index (BMI): 39.6 Physical Status: P2 Anesthesia Type: Spinal Block Obstetrics: C/S anesthesia only
[2018-02-23] MEDS: KETOROLAC 15 MG/1 ML VIAL IVP SCH ×2 (05:13→11:03)
[2018-02-23 05:15] LABS: Hematocrit [HCT] 28.2 % (37.0-47.0); Hemoglobin [HGB] 9.6 g/dL (12.0-16.0); MEAN CORPUSCULAR HEMOGLOBIN 27.7 PG (27-31); MEAN CORPUSCULAR VOLUME 81.3 FL (81-99); MEAN PLATELET VOLUME 12.5 FL (7.4-12.2); RED BLOOD COUNT 3.47 10^6/uL (4.20-5.40)
[2018-02-23 05:42] LABS: BLOOD UREA NITROGEN 8 mg/dL (7-22); BUN/CREATININE RATIO 11.42 (6-20); SERUM ALBUMIN 2.5 g/dL (3.5-4.8); Uric Acid 4.6 mg/dl (2.5-6.2)
[2018-02-23] MEDS: Senna/Docusate Tab 1 TAB TAB PO SCH ×2 (09:09→20:24)
[2018-02-23] MEDS: oxyCODONE-ACETAMINOPHEN 5-325 TAB PO PRN ×4 (09:09→21:08)
[2018-02-23] MEDS: Prenatal Multivitamin Tab 1 TAB TAB PO SCH (09:09)
--- NOTE | 2018-02-23 12:27 | OB.PROGRES ---
Subjective Post Day: 1 Pain Management: IV Toradol Santamaria Catheter: No Flatus: Yes Small 10-25 ml Diet: Regular Feeding Method: / Bottle Ambulating: Yes Concerns / Additional Information: The patient had significant nausea with emesis yesterday after surgery and it has improved now. The patient took oxycodone this morning and it helped somewhat with her pain. The patient is still trying to catch up with her pain. The patient had her Santamaria catheter removed a couple hours ago and she has not voided yet. The patient states that she got some sleep last night. Overall, the patient is pleased and how she is doing. Positive flatus-a small amount. Objective - General General Appearance: POSITIVE: No Acute Distress, Cooperative - Cardiovacular Cardiovascular Exam: POSITIVE: RRR Edema: +2 Pedal Edema Extremities: Negative Sha's - Bilaterally - Respiratory Respiratory Exam: POSITIVE: Clear to Auscultation - Bilaterally - Abdomen Bowel Sounds: Present Abdominal Wound Assessment: Silverlone Dressing, Well Approximated (Nurse stated that incision looked good when dressing from yesterday was removed today. ) Other Abdominal Exam Details: some abdominal distention. Appropriately tender without guarding or rebound. - Fundus/Lochia/Perineum Uterus Consistency: Firm Assesstment / Plan Assessment / Plan: Postoperative day #1 status post repeat low transverse section and bilateral tubal ligation using Filshie clips. Patient's blood pressures continued to be intermittently elevated. Patient asymptomatic with no headache. The highest diastolic blood pressure was 99. Platelets are somewhat lower today at 148,000. Liver function tests normal. Creatinine was 0.7. LDH and uric acid were elevated today. Patient has preeclampsia without severe symptoms or signs. The patient did have 2680 mL of urine output over 24 hours. This is a good diuresis. Patient is anemic with an H&H of 9.6 and 28.2. Patient with type I diabetes and insulin pump basal rate was cut to 80% of what it was. CDE did this Plan: Continue to observe blood pressures closely Gestational hypertension panel tomorrow morning unless blood pressures elevate even more and then I would get it sooner If the patient becomes symptomatic with either headache or right upper quadrant pain or the patient's labs elevate more, I would consider using magnesium sulfate for 24 hours. If the patient's blood pressures remain elevated, I may consider using extended release nifedipine for several weeks for blood pressure control. Ambulate today and increase ambulation tomorrow. I informed the patient that the patient would not go home tomorrow but was continued to be observed until least postoperative day #3 The hospitalist and CDE will continue to adjust the patient's insulin pump and follow her glucoses The patient should not eat spicy or gassy foods secondary to abdominal distention. Hopefully, ambulation and time will help decrease the distention. Patient expressed understanding.
[2018-02-23] MEDS: IBUPROFEN 800 MG TABLET PO PRN (19:02)
[2018-02-24] MEDS: oxyCODONE-ACETAMINOPHEN 5-325 TAB PO PRN ×6 (01:34→23:59)
[2018-02-24] MEDS: IBUPROFEN 800 MG TABLET PO PRN ×3 (03:35→21:53)
[2018-02-24 06:38] LABS: Hematocrit [HCT] 28.9 % (37.0-47.0); Hemoglobin [HGB] 9.6 g/dL (12.0-16.0); MEAN CORPUSCULAR HEMOGLOBIN 27.3 PG (27-31); MEAN CORPUSCULAR HGB CONC 33.2 g/dL (33-37); MEAN CORPUSCULAR VOLUME 82.1 FL (81-99); MEAN PLATELET VOLUME 12.3 FL (7.4-12.2); RED BLOOD COUNT 3.52 10^6/uL (4.20-5.40)
[2018-02-24 06:47] LABS: BLOOD UREA NITROGEN 9 mg/dL (7-22); SERUM ALBUMIN 2.6 g/dL (3.5-4.8); Uric Acid 4.3 mg/dl (2.5-6.2)
--- NOTE | 2018-02-24 07:48 | OB.PROGRES ---
Subjective Post Day: 2 Pain Management: PO Santamaria Catheter: No Flatus: Yes Lochia Color: Rubra/Red Scant < 10 ml Diet: Regular Feeding Method: / Bottle Ambulating: Yes Concerns / Additional Information: The patient states that she is doing better. Early this morning she had a full bladder and had increased pain which was improved after voiding and pain medicines. Patient feeling better now. No fever or chills. No headache. Patient is ambulating. Patient's baby is doing better. Objective - General General Appearance: POSITIVE: No Acute Distress, Cooperative - Cardiovacular Cardiovascular Exam: POSITIVE: RRR Edema: +2 Pedal Edema Extremities: Negative Sha's - Bilaterally - Respiratory Respiratory Exam: POSITIVE: Clear to Auscultation - Bilaterally - Abdomen Bowel Sounds: Present Abdominal Wound Assessment: Silverlone Dressing Other Abdominal Exam Details: Abdomen without guarding or rebound. Appropriately tender. Dressing intact. Assesstment / Plan Assessment / Plan: Assessment: Postoperative day #2 status post repeat section and bilateral tubal ligation using Filshie clips. Patient also with preeclampsia without symptoms or signs of severe preeclampsia. Blood pressures are still elevated somewhat. No severe range blood pressures. Labs are improving. Creatinine was 0.6, liver function tests normal. LDH decreasing. Platelets increasing. Plan: With blood pressures still slightly elevated, we'll start nifedipine XL 30 mg this morning to determine how her blood pressures are. Do not think that we will need to have a higher dose of nifedipine but only time and blood pressures will tell. We'll continue to observe patient today. Patient will not be discharged today. Perhaps tomorrow. She will need a follow-up appointment with me next week.
[2018-02-24] MEDS: Prenatal Multivitamin Tab 1 TAB TAB PO SCH (09:34)
[2018-02-24] MEDS: Senna/Docusate Tab 1 TAB TAB PO SCH ×2 (09:34→21:14)
[2018-02-24] MEDS: NIFEdipine 30 MG ER 24H TABLET PO SCH (09:34)
[2018-02-24] MEDS ORDERED: Ondansetron ODT Tab 4 MG TAB PO PRN (12:02)
[2018-02-25] MEDS: oxyCODONE-ACETAMINOPHEN 5-325 TAB PO PRN ×5 (04:21→22:10)
--- NOTE | 2018-02-25 08:14 | OB.PROGRES ---
Subjective Post Day: 3 Pain Management: PO Santamaria Catheter: No Flatus: Yes Diet: Regular [place] Feeding Method: Exculsively Ambulating: Yes Concerns / Additional Information: BP slightly improved after one day on Nifedipine. She is doing well and has no complaints. Pain control is excellent. Assesstment / Plan Assessment / Plan: POD 3. Pt. is doing well. Baby is not ready for discharge. Will monitor BP today with second dose of Nifedipine. Home tomorrow?
[2018-02-25] MEDS: IBUPROFEN 800 MG TABLET PO PRN ×2 (08:52→16:16)
[2018-02-25] MEDS: NIFEdipine 30 MG ER 24H TABLET PO SCH (08:52)
[2018-02-25] MEDS: Senna/Docusate Tab 1 TAB TAB PO SCH ×2 (08:53→21:00)
[2018-02-25] MEDS: Prenatal Multivitamin Tab 1 TAB TAB PO SCH (08:53)
[2018-02-25] MEDS ORDERED: NIFEdipine 30 MG ER 24H TABLET PO ONE (12:13)
[2018-02-25 21:14] VITALS: RESP 16
[2018-02-26] MEDS: oxyCODONE-ACETAMINOPHEN 5-325 TAB PO PRN ×2 (02:18→09:17)
[2018-02-26] MEDS: IBUPROFEN 800 MG TABLET PO PRN (04:02)
[2018-02-26] MEDS ORDERED: NIFEdipine 30 MG ER 24H TABLET PO SCH (09:00)
[2018-02-26] MEDS: Senna/Docusate Tab 1 TAB TAB PO SCH (09:17)
[2018-02-26] MEDS: Prenatal Multivitamin Tab 1 TAB TAB PO SCH (09:17)
[2018-02-26 09:56] VITALS: BP 137/89; TEMP 97.8; O2SAT 99
--- NOTE | 2018-02-26 10:10 | OB.PROGRES ---
Subjective Post Day: 4 Pain Management: PO Santamaria Catheter: No Flatus: Yes Scant < 10 ml Diet: Regular [place] Feeding Method: / Bottle Ambulating: Yes Concerns / Additional Information: The patient states that she is feeling well. No headaches. No blurred vision. Glucoses have been slightly higher but probably her dietary intake here has been a factor. The patient would like to go home. The patient believes that her baby is going to be discharged today. Objective - General General Appearance: POSITIVE: No Acute Distress, Cooperative - Cardiovacular Cardiovascular Exam: POSITIVE: RRR Edema: +2 Pedal Edema Extremities: Negative Sha's - Bilaterally - Respiratory Respiratory Exam: POSITIVE: Clear to Auscultation - Bilaterally - Abdomen Bowel Sounds: Present Abdominal Wound Assessment: Silverlone Dressing Other Abdominal Exam Details: Abdomen soft and nontender without guarding or rebound Assesstment / Plan Assessment / Plan: Assessment: Postoperative day #4 status post repeat and Filshie clip application for bilateral tubal ligation. Blood pressures remain mildly elevated occasionally. Patient received 60 mg XL nifedipine yesterday and today. Patient asymptomatic. The patient's abdominal exam is normal for postoperative day #4. Silverlon dressing intact. The patient has been afebrile. Plan: Discharge today. Please see the discharge plan. Follow-up in 2 days for blood pressure check.
--- NOTE | 2018-02-26 10:20 | DCSUMMARY ---
Hospitalization Summary Admit Date: 02/21/18 Discharge Date: 02/26/18 Primary Diagnosis:: IUP 37+ weeks, type I diabetes Secondary Diagnosis:: Preeclampsia without signs or symptoms of severe preeclampsia History of contractions History of section with patient desire repeat section Satisfied parity with patient desiring tubal ligation Primary Surgery and Date: 02/22/2018. Repeat low transverse section. Bilateral tubal ligation using Filshie clips Delivery Type: Hospital Course: The patient was admitted on 02/21/2018. The patient had a repeat on the morning of 02/22/2018. Bilateral tubal ligation using Filshie clips also. The patient's blood pressures remained slightly elevated in the patient was started on nifedipine XL 30 mg daily and increase to 60 mg XL daily. Patient's blood pressures were mildly elevated intermittently. Patient was discharged on postoperative day #4. / Postop Complications: Patient had mildly elevated blood pressures after being given a diagnosis of preeclampsia without signs or symptoms of severe preeclampsia prior to delivery. Patient was started on nifedipine XL 30 mg daily and increase to 60 mg XL daily. Vernon Complications: Vernon's glucoses were labile secondary to hyperinsulinemia. The initially had some respiratory issues. Please see the freight sorter' s notes. Exam - Vitals Vital Signs: Vital Signs Temperature 97.8 F Temperature Source Oral Pulse Rate [Apical] 80 Pulse Rate [Pulse Oximeter] 94 Pulse Rate 72 Respiratory Rate 16 Blood Pressure [Left Arm] 137/89 Blood Pressure [Right Arm] 141/80 Blood Pressure 145/79 Pulse Ox 99 Oxygen Flow Rate RA Oxygen Delivery Method Room Air Height 5 ft 3 in Weight 224 lb 3.185 oz
== END 2018-02-26 14:45 | disposition home or self-care (01) | DRG 765 ==
LOC: OBOP 14:07 → OBIP 17:19 → MED/SURG 02-22 10:25 → OBIP 02-22 10:46
PROVIDERS: ADMIT Obstetrics & Gynecology; ATTEND Obstetrics & Gynecology